=== PATIENT | male | born 1945 | race African-American/Black ===

== ENCOUNTER 2018-01-30 22:28 | Inpatient (IN) | payer MEDICARE, BC ==
[~2018-01-30] VITALS: Ht 182.9 cm; Wt 90.7 kg
[2018-01-30] MEDS ORDERED: Nitroglycerin 2% oint pkt TOPIC ONE (22:30)
[2018-01-30] MEDS ORDERED: LORazepam Inj 2mg/ml 1ml IV ONE (22:30)
[2018-01-30 22:38] VITALS: BP 182/101
[2018-01-30] MEDS ORDERED: CARDIZEM CD120 MG ORAL (22:38)
[2018-01-30] MEDS ORDERED: POTASSIUM CHLO20 ME2 ORAL (22:39)
[2018-01-30] MEDS ORDERED: B-12500 MC1 PO (22:39)
[2018-01-30] MEDS ORDERED: GABAPENTIN800 MG ORAL (22:39)
[2018-01-30] MEDS ORDERED: PROSCAR5 MG ORAL (22:39)
[2018-01-30] MEDS ORDERED: ENALAPRIL-HCTZ1 EACH ORAL (22:39)
[2018-01-30] MEDS ORDERED: ASPIR 8181 MG ORAL (22:39)
[2018-01-30] MEDS ORDERED: EMERGEN-C 500500 MG PO (22:39)
[2018-01-30] MEDS ORDERED: LOVENOX10 M3 SUBQ (22:39)
[2018-01-30] MEDS ORDERED: LATANOPROST2.5 ML BOTH EYES (22:39)
[2018-01-30] MEDS ORDERED: ATORVASTATIN CA20 MG ORAL (22:39)
[2018-01-30] MEDS ORDERED: VITAMIN D400 UNI5 PO (22:39)
[2018-01-30 22:50] VITALS: BP 131/97
[2018-01-30 22:52] LABS: HEMATOCRIT 50.1 % (42.0-52.0); HEMOGLOBIN 16.9 G/DL (14.2-18.0); MEAN CORPUSCULAR VOLUME 87 FL (80-99); PLATELET COUNT 294 K/UL (150-450); RED BLOOD COUNT 5.78 M/UL (4.70-6.10); RED CELL DISTRIBUTION WIDTH 11.2 % (11.6-14.8)
[2018-01-30 22:57] LABS: ANION GAP 11 mmol/L (5-15); BLOOD UREA NITROGEN 13 mg/dL (7-18); CALCIUM 9.7 MG/DL (8.5-10.1); CARBON DIOXIDE 27 MMOL/L (21-32); CHLORIDE 99 MMOL/L (98-107); CREATININE 1.1 MG/DL (0.55-1.30); POTASSIUM 3.3 MMOL/L (3.5-5.1); SODIUM 137 MMOL/L (136-145)
[2018-01-30] MEDS ORDERED: Metoprolol 5mg/5ml Inj IVP ONE (23:00)
[2018-01-30 23:05] LABS: WHITE BLOOD COUNT 23.7 K/UL (4.8-10.8)
[2018-01-30 23:10] LABS: ALANINE AMINOTRANSFERASE 61 U/L (12-78); ALBUMIN 4.3 G/DL (3.4-5.0); ALBUMIN/GLOBULIN RATIO 0.7 (1.0-2.7); ALKALINE PHOSPHATASE 137 U/L (46-116); ASPARTATE AMINO TRANSFERASE 44 U/L (15-37); BILIRUBIN,TOTAL 1.6 MG/DL (0.2-1.0); CKMB 2.5 NG/ML (0.0-3.6); CREATINE KINASE 418 U/L (26-308)
[2018-01-30 23:13] LABS: BILIRUBIN,DIRECT 0.5 MG/DL (0.0-0.3)
[2018-01-30] MEDS ORDERED: Sodium Chloride 500ML 500 ML IV ONE (23:15)
[2018-01-30 23:17] VITALS: BP 122/76
[2018-01-31] VITALS (7 sets, daily range): BP systolic 124–163; BP diastolic 72–114
--- NOTE | 2018-01-31 01:50 | Emergency Room Report ---
History of Present Illness General Chief Complaint: Dyspnea/Respdistress Source: Patient, Family Member Present Illness HPI 73-year-old male presents ED with respiratory distress. Brought in by EMS. Per EMS patient has been short of breath since this morning. Noted to have crackles bilaterally. Was started on CPAP with nitroglycerin SL. Upon arrival patient in distress. Tachycardic. O2 sats improved. 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 Scheduled for surgery but waiting on insurance. Denies chest pain. Denies fevers or chills. No other aggravating relieving factors. Denies any other associated symptoms Allergies: Coded Allergies: CORTISONE (Verified Allergy, Unknown, 01/30/18) Patient History Past Medical History: HTN, other - goiter Past Surgical History: none Pertinent Family History: none Social History: Denies: smoking, alcohol use, drug use Immunizations: UTD Reviewed Nursing Documentation: PMH: Agreed; PSxH: Agreed Nursing Documentation-PMH Past Medical History: No History, Except For Hx Cardiac Problems: Yes Hx Hypertension: Yes Hx Cancer: No Hx Gastrointestinal Problems: No Hx Neurological Problems: No Review of Systems All Other Systems: negative except mentioned in HPI Physical Exam Vital Signs Date Time Temp Pulse Resp B/P (MAP) Pulse Ox O2 Delivery O2 Flow Rate FiO2 01/30/18 22:28 97.0 158 40 202/102 96 Room Air 01/30/18 22:38 10.0 60 Sp02 EP Interpretation: reviewed, normal General Appearance: alert, mild distress Head: normocephalic Eyes: bilateral eye normal inspection, bilateral eye PERRL ENT: normal ENT inspection Neck: normal inspection Respiratory: accessory muscle use, crackles Cardiovascular #1: tachycardia Gastrointestinal: normal inspection Rectal: deferred Genitourinary: no CVA tenderness Musculoskeletal: normal inspection Neurologic: alert, oriented x3, responsive, motor strength/tone normal, sensory intact, speech normal Psychiatric: normal inspection Skin: normal inspection Lymphatic: normal inspection Procedures Critical Care Time Critical Care Time i. I feel this is a highly complex case requiring extensive working including EKG/Rhythm strip, Xray/CT/US, Blood/urine lab work, repeat exams while in ED, and administration of strong opiates/narcotics for pain control, admission to hospital or close patient follow up. Total time: 40 min bedside evaluation and treatment excludes procedures (EKG). Reason for critical care: Respiratory distress, A. fib Possible complications: hypotension, hypertension, KS, shock, arrhythmias, metabolic acidosis, end organ damage, respiratory failure. Interventions: Labs, IV fluids, EKG, chest x-ray, BIPAP, Nitropaste, Lopressor, antibiotics Course: Patient presenting in respiratory distress. Bilateral crackles. Hypertensive. Hypoxic. Started on BiPAP. nitro-paste added. Given Ativan. Labs show leukocytosis, lactic acid elevated, chest x-ray shows abnormal silhouette consistent with thyroid mass. Family has CT report which shows large goiter compressing trachea. Given IV hydration. Given antibiotics. On reassessment patient more comfortable at bedside. BiPAP at bedside Consultations: nursing staff, EMS, family Performed by: Dr Kidd Tolerated well condition = serious j. because of unstable vital signs this patient had a condition that could potentially threaten life or limb. I feel this is a critical patient who required my full attention while patient was considered critical. Total Critical Care Time excluding procedures was greater than 35 minutes Medical Decision Making Diagnostic Impression: Primary Impression: Respiratory distress Additional Impressions: Pulmonary edema Qualified Codes: J81.0 - Acute pulmonary edema Atrial fibrillation with RVR ER Course Hospital Course 73 yo M presents to ED c/o respiratory distress Differential diagnoses include: Pneumonia, CHF exacerbation, pneumothorax, fluid overload Clinical course Patient placed on stretcher. On monitor worker with hypoxia on room air and tachycardia. After initial history and physical, I ordered BIPAP, nitropaste, ativan I ordered labs, IV fluids, EKG, chest x-ray, blood cultures Labs -leukocytosis noted, hemoglobin/hematocrit stable, electrolytes okay, lactate 3.2, troponins negative EKG - afib with RVR, no acute ischemic changes interpreted by me CXR - R upper lobe opacity (is likely corresponds to the right thyroid goiter which is compressing on trachea seen on CT report) gave us copy of CT report Overall respiratory status improved on BiPAP. Given antibiotics. Given Lopressor. Given 30 mL per KG fluid bolus tachycardia resolved. Patient is off BiPAP. Will be kept at bedside Case discussed with Dr. Charlton and he agreed to the patient to his service for further care and support I feel this is a highly complex case requiring extensive working including EKG/ Rhythm strip, Xray/CT/US, Blood/urine lab work, repeat exams while in ED, and administration of strong opiates/narcotics for pain control, admission to hospital or close patient follow up. Diagnosis - respiratory distress, pulmonary edema, atrial fibrillation with RVR Patient admitted to SDU in serious condition Labs Test 01/30/18 22:30 01/30/18 22:35 01/30/18 23:39 White Blood Count 23.7 K/UL (4.8-10.8) Red Blood Count 5.78 M/UL (4.70-6.10) Hemoglobin 16.9 G/DL (14.2-18.0) Hematocrit 50.1 % (42.0-52.0) Mean Corpuscular Volume 87 FL (80-99) Mean Corpuscular Hemoglobin 29.3 PG (27.0-31.0) Mean Corpuscular Hemoglobin Concent 33.8 G/DL (32.0-36.0) Red Cell Distribution Width 11.2 % (11.6-14.8) Platelet Count 294 K/UL (150-450) Mean Platelet Volume 7.9 FL (6.5-10.1) Neutrophils (%) (Auto) % (45.0-75.0) Lymphocytes (%) (Auto) % (20.0-45.0) Monocytes (%) (Auto) % (1.0-10.0) Eosinophils (%) (Auto) % (0.0-3.0) Basophils (%) (Auto) % (0.0-2.0) Differential Total Cells Counted 100 Neutrophils % (Manual) 88 % (45-75) Lymphocytes % (Manual) 7 % (20-45) Monocytes % (Manual) 5 % (1-10) Eosinophils % (Manual) 0 % (0-3) Basophils % (Manual) 0 % (0-2) Band Neutrophils 0 % (0-8) Platelet Estimate Adequate Platelet Morphology Normal Red Blood Cell Morphology Normal Sodium Level 137 MMOL/L (136-145) Potassium Level 3.3 MMOL/L (3.5-5.1) Chloride Level 99 MMOL/L (98-107) Carbon Dioxide Level 27 MMOL/L (21-32) Anion Gap 11 mmol/L (5-15) Blood Urea Nitrogen 13 mg/dL (7-18) Creatinine 1.1 MG/DL (0.55-1.30) Estimat Glomerular Filtration Rate mL/min (>60) Glucose Level 157 MG/DL (74-106) Lactic Acid Level 3.20 mmol/L (0.4-2.0) 2.20 mmol/L (0.66-2.22) Calcium Level 9.7 MG/DL (8.5-10.1) Total Bilirubin 1.6 MG/DL (0.2-1.0) Direct Bilirubin 0.5 MG/DL (0.0-0.3) Aspartate Amino Transf (AST/SGOT) 44 U/L (15-37) Alanine Aminotransferase (ALT/SGPT) 61 U/L (12-78) Alkaline Phosphatase 137 U/L (46-116) Total Creatine Kinase 418 U/L (26-308) Creatine Kinase MB 2.5 NG/ML (0.0-3.6) Creatine Kinase MB Relative Index 0.5 Troponin I 0.000 ng/mL (0.000-0.056) Pro-B-Type Natriuretic Peptide 841 pg/mL (0-125) Total Protein 10.4 G/DL (6.4-8.2) Albumin 4.3 G/DL (3.4-5.0) Globulin 6.1 g/dL Albumin/Globulin Ratio 0.7 (1.0-2.7) Arterial Blood pH 7.384 (7.350-7.450) Arterial Blood Partial Pressure CO2 39.8 mmHg (35.0-45.0) Arterial Blood Partial Pressure O2 245.4 mmHg (75.0-100.0) Arterial Blood HCO3 23.2 mmol/L (22.0-26.0) Arterial Blood Oxygen Saturation 99.0 % (95-100) Arterial Blood Base Excess -1.6 (-2-2) Pete Test Positive EKG Diagnostic Results Rate: tachycardiac Rhythm: other - afib ST Segments: no acute changes ASA given to the pt in ED: No Rhythm Strip Diag. Results EP Interpretation: yes Rhythm: no PVC's, no ectopy Chest X-Ray Diagnostic Results Chest X-Ray Diagnostic Results : Chest X-Ray Ordered: Yes # of Views/Limited/Complete: 1 View Indication: Shortness of Breath EP Interpretation: Yes Interpretation: no consolidation, no effusion, no pneumothorax, other - Opacification of portions of the right upper lung. This may represent atelectasis. Clinical correlation is required. Impression: Other - R upper mass Electronically Signed by: Electronically signed by Brice Kidd MD Last Vital Signs Date Time Temp Pulse Resp B/P (MAP) Pulse Ox O2 Delivery O2 Flow Rate FiO2 01/31/18 01:20 121 28 100 Facial 60 01/31/18 00:43 10.0 01/31/18 00:25 97.5 124/72 Status: improved Disposition: ADMITTED INPATIENT Condition: Serious Referrals: NON PHYSICIAN (PCP) Brice Kidd MD Jan 31, 2018 01:50
[2018-01-31] MEDS ORDERED: dilTIAZem HCl CD 120mg cap ORAL SCH (09:00)
[2018-01-31] MEDS ORDERED: Xarelto 10mg tab ORAL SCH (09:30)
[2018-01-31] MEDS ORDERED: Vitamin B-12 500mcg tab ORAL SCH (09:45)
[2018-01-31] MEDS ORDERED: Aspirin Baby 81mg NG SCH (09:45)
[2018-01-31] MEDS ORDERED: LORazepam Inj 2mg/ml 1ml IV SCH (10:00)
--- NOTE | 2018-01-31 10:55 | History and Physical ---
History of Present Illness General Date patient seen: Jan 31, 2018 Time patient seen: 10:39 Reason for Hospitalization: Dyspnea/Respdistress Present Illness HPI 73-year-old male with h/o htn, Right UE DVT and goiter presented for progressively worsening shortness of breath. Patient was immediately placed on CPAP on admit, patient resp distress improved and currently on venturi mask and sating well. Patient noted to have severe crackles b/l. Patient's is at bedside, states that patient has a large thyroid mass compressing on the trachea and was planned for surgery soon with his CTSurgeon and ENT specialist at [facility]. Patient currently denies any chest pain or fevers or chills. soc hx; reviewed, denies any smoking, alcohol use or drug use fam hx reviewed, denies any sig past fam hx code status reviewed, full code Allergies: Coded Allergies: CORTISONE (Verified Allergy, Unknown, 01/30/18) Medication History Scheduled Aspirin* (Aspir 81*), 81 MG ORAL DAILY, (Reported) Atorvastatin Calcium* (Atorvastatin Calcium*), 10 MG ORAL BEDTIME, (Reported) Diltiazem Hcl* (Cardizem Cd*), 120 MG ORAL DAILY, (Reported) Enalapril/Hydrochlorothiazide (Enalapril-Hctz 10-25 Mg Tablet), 1 TAB ORAL DAILY , (Reported) Enoxaparin* (Lovenox*), 120 MG SUBQ DAILY, (Reported) Finasteride* (Proscar*), 5 MG ORAL DAILY, (Reported) Gabapentin* (Gabapentin*), 800 MG ORAL THREE TIMES A DAY, (Reported) Latanoprost* (Xalatan*), 1 DROP BOTH EYES BEDTIME, (Reported) Potassium Chloride (Potassium Chloride), 20 MEQ ORAL DAILY, (Reported) Miscellaneous Medications Cholecalciferol (Vitamin D3) (Vitamin D), 400 UNIT PO, (Reported) Cyanocobalamin (Vitamin B-12) (B-12), 500 MCG PO, (Reported) Vit C/Ascorb Sod/Multivit-Min (Emergen-C 500 mg Chewable Tab), 500 MG PO, ( Reported) Patient History Healthcare decision maker SELF Resuscitation status Advanced Directive on File No Review of Systems ROS Narrative 14 point ROS reviewed and negative except per Above HPI Physical Exam General Appearance: WD/WN, alert, moderate distress Lines, tubes and drains: peripheral HEENT: normocephalic, atraumatic, anicteric Neck: non-tender, normal alignment, supple, normal inspection Respiratory/Chest: chest wall non-tender, respiratory distress, other - on venturia mask, b/l crackles and rhonchi appreciated Cardiovascular/Chest: normal peripheral pulses, irregularly irregular Abdomen: normal bowel sounds, non tender, soft, no organomegaly, no mass Skin Exam: normal pigmentation, warm/dry Neurologic: bulldozer operator II-XII grossly normal, no motor/sensory deficits, alert, oriented x 3, responsive, normal mood/affect Last 24 Hour Vital Signs Date Time Temp Pulse Resp B/P (MAP) Pulse Ox O2 Delivery O2 Flow Rate FiO2 01/31/18 08:34 129 162/92 01/31/18 08:30 97.9 128 28 163/92 (115) 100 01/31/18 08:00 10.0 60 01/31/18 05:08 114 26 98 Facial 60 01/31/18 04:43 118 20 98 2.0 28 01/31/18 04:00 97.6 96 28 127/84 (98) 98 01/31/18 04:00 Bi-pap 10.0 01/31/18 04:00 114 01/31/18 01:20 121 28 100 Facial 60 01/31/18 00:43 10.0 60 01/31/18 00:25 97.5 121 32 124/72 100 Bi-pap 10.0 60 123 01/31/18 00:20 Bi-pap 01/31/18 00:20 Bi-pap 10.0 01/31/18 00:20 127 01/31/18 00:05 97.5 121 32 124/72 100 Bi-pap 10.0 60 123 01/31/18 00:00 97.7 76 28 129/83 (98) 99 01/30/18 23:17 97.5 123 32 122/76 100 Bi-pap 10.0 60 123 01/30/18 23:07 151 131/98 01/30/18 23:00 162 31 98 Facial 60 01/30/18 22:50 97.5 154 33 131/97 99 Room Air 10.0 60 01/30/18 22:40 182/101 01/30/18 22:38 97.4 158 41 182/101 97 Non-Rebreather 10.0 60 01/30/18 22:38 159 41 Bi-pap 10.0 60 01/30/18 22:28 97.0 158 40 202/102 96 Room Air Intake and Output 01/30/18 01/31/18 18:59 06:59 Intake Total 60 ml Balance 60 ml Intake Oral 60 ml Laboratory Tests Test 01/30/18 22:30 01/30/18 22:35 01/30/18 23:39 White Blood Count 23.7 K/UL (4.8-10.8) *H Red Blood Count 5.78 M/UL (4.70-6.10) Hemoglobin 16.9 G/DL (14.2-18.0) Hematocrit 50.1 % (42.0-52.0) Mean Corpuscular Volume 87 FL (80-99) Mean Corpuscular Hemoglobin 29.3 PG (27.0-31.0) Mean Corpuscular Hemoglobin Concent 33.8 G/DL (32.0-36.0) Red Cell Distribution Width 11.2 % (11.6-14.8) L Platelet Count 294 K/UL (150-450) Mean Platelet Volume 7.9 FL (6.5-10.1) Neutrophils (%) (Auto) % (45.0-75.0) Lymphocytes (%) (Auto) % (20.0-45.0) Monocytes (%) (Auto) % (1.0-10.0) Eosinophils (%) (Auto) % (0.0-3.0) Basophils (%) (Auto) % (0.0-2.0) Differential Total Cells Counted 100 Neutrophils % (Manual) 88 % (45-75) H Lymphocytes % (Manual) 7 % (20-45) L Monocytes % (Manual) 5 % (1-10) Eosinophils % (Manual) 0 % (0-3) Basophils % (Manual) 0 % (0-2) Band Neutrophils 0 % (0-8) Platelet Estimate Adequate Platelet Morphology Normal Red Blood Cell Morphology Normal Sodium Level 137 MMOL/L (136-145) Potassium Level 3.3 MMOL/L (3.5-5.1) L Chloride Level 99 MMOL/L (98-107) Carbon Dioxide Level 27 MMOL/L (21-32) Anion Gap 11 mmol/L (5-15) Blood Urea Nitrogen 13 mg/dL (7-18) Creatinine 1.1 MG/DL (0.55-1.30) Estimat Glomerular Filtration Rate mL/min (>60) Glucose Level 157 MG/DL (74-106) H Lactic Acid Level 3.20 mmol/L (0.4-2.0) H 2.20 mmol/L (0.66-2.22) Calcium Level 9.7 MG/DL (8.5-10.1) Total Bilirubin 1.6 MG/DL (0.2-1.0) H Direct Bilirubin 0.5 MG/DL (0.0-0.3) H Aspartate Amino Transf (AST/SGOT) 44 U/L (15-37) H Alanine Aminotransferase (ALT/SGPT) 61 U/L (12-78) Alkaline Phosphatase 137 U/L (46-116) H Total Creatine Kinase 418 U/L (26-308) H Creatine Kinase MB 2.5 NG/ML (0.0-3.6) Creatine Kinase MB Relative Index 0.5 Troponin I 0.000 ng/mL (0.000-0.056) Pro-B-Type Natriuretic Peptide 841 pg/mL (0-125) H Total Protein 10.4 G/DL (6.4-8.2) H Albumin 4.3 G/DL (3.4-5.0) Globulin 6.1 g/dL Albumin/Globulin Ratio 0.7 (1.0-2.7) L Arterial Blood pH 7.384 (7.350-7.450) Arterial Blood Partial Pressure CO2 39.8 mmHg (35.0-45.0) Arterial Blood Partial Pressure O2 245.4 mmHg (75.0-100.0) H Arterial Blood HCO3 23.2 mmol/L (22.0-26.0) Arterial Blood Oxygen Saturation 99.0 % (95-100) Arterial Blood Base Excess -1.6 (-2-2) Pete Test Positive Height (Feet): 6 Weight (Pounds): 200 Medications Current Medications Medications (Trade) Dose Ordered Sig/Daniel Route PRN Reason Start Time Stop Time Status Last Admin Dose Admin Albuterol/ Ipratropium (Albuterol/ Ipratropium) 3 ml Q4HRT N 01/31/18 11:00 02/05/18 10:59 Aspirin (ASA) 81 mg DAILY NG 01/31/18 09:45 03/02/18 09:44 Atorvastatin Calcium (Lipitor) 20 mg BEDTIME ORAL 01/31/18 21:00 03/02/18 20:59 Cyanocobalamin (Vitamin B-12) 500 mcg DAILY ORAL 01/31/18 09:45 03/02/18 09:44 Diltiazem HCl (Cardizem CD) 120 mg DAILY ORAL 01/31/18 09:00 03/02/18 08:59 01/31/18 08:34 Finasteride (Proscar) 5 mg DAILY ORAL 01/31/18 10:00 03/02/18 09:59 Furosemide (Lasix) 40 mg BID IV 01/31/18 09:00 03/02/18 08:59 01/31/18 08:37 Gabapentin (Neurontin) 800 mg THREE TIMES A DAY ORAL 01/31/18 10:00 03/02/18 09:59 Latanoprost (Xalatan) 1 drop BEDTIME BOTH EYES 01/31/18 21:00 03/02/18 20:59 Levofloxacin 150 ml @ 100 mls/hr Q24H IVPB 01/31/18 23:00 02/07/18 22:59 Lorazepam (Ativan 2mg/ml 1ml) 2 mg ONCE IV 01/31/18 10:00 01/31/18 11:00 01/31/18 10:12 Non-Formulary Medication (Non-Formulary Med) 1 ea DAILY ORAL 01/31/18 10:00 03/02/18 09:59 UNV Potassium Chloride 100 ml @ 100 mls/hr Q1H IVPB 01/31/18 10:00 01/31/18 13:59 01/31/18 10:12 Rivaroxaban (Xarelto) 20 mg DAILY ORAL 01/31/18 09:30 03/02/18 09:29 01/31/18 10:13 Vitamin D (Vitamin D) 400 intlu DAILY ORAL 01/31/18 11:00 03/02/18 10:59 Assessment/Plan Problem List: (1) Acute exacerbation of CHF (congestive heart failure) ICD Codes: I50.9 - Heart failure, unspecified SNOMED: 67784112 (2) Acute and chronic respiratory failure with hypoxia ICD Codes: J96.21 - Acute and chronic respiratory failure with hypoxia SNOMED: 66254289, 311954127 (3) Aspiration pneumonia ICD Codes: J69.0 - Pneumonitis due to inhalation of food and vomit SNOMED: 008059862 (4) Atrial fibrillation with RVR ICD Codes: I48.91 - Unspecified atrial fibrillation SNOMED: 893143043069822 (5) Pulmonary edema ICD Codes: J81.1 - Chronic pulmonary edema SNOMED: 88054556 Qualifiers: Qualified Codes: J81.0 - Acute pulmonary edema (6) Upper leg DVT (deep venous thromboembolism), acute ICD Codes: I82.4Y9 - Acute embolism and thrombosis of unspecified deep veins of unspecified proximal lower extremity SNOMED: 153156075, 339600082, 527349583 (7) Goiter ICD Codes: E04.9 - Nontoxic goiter, unspecified SNOMED: 3200515 Status: stable Assessment/Plan #Acute hypoxic resp failure #Acute systolic CHF exacerbation #Aspiration Pneumonia #Pulm edema - off cpap, on venturi mask, satting well, cont pulse ox, tele - per ed reviewed, xcr with rul consolidation and pulm edema, pending image to upload - ekg reviewed, afib - likely aspirating due to goiter - broad spectrum abx started, vanco, zosyn - lasix - tte #Afib RVR - new onset? - started on xarelto and resume cardizem and added metoprolol - monitor - cards consulted #Right Upper Extremity DVT - was on lovenox full dose previously, will give xarelto instead now #Goiter - plan transfer to [facility] so that patient could get surgery with his own CTS and ENT diet; npo except meds, swallow eval DVT Prophylaxis: SCD, xarelto Code Status: Full Hospital Classification Declaration: Based on this initial evaluation, and depending on the patient's clinical course, I anticipate that this patient will require hospitalization inpatient for 2-3 midnights for resp failure/asp pna /a fib rvr and close respiratory/hemodynamic monitoring. Disposition: Once the patient is stable to leave the hospital, I anticipate the patient will likely be discharged to the following environment: home I spent 77 minutes on this patient's case, and 46 minutes were dedicated to counseling and/or care coordination. Discussed with patient/family, nursing staff, SW/CM regarding clinical status, treatment course, and disposition planning. Time of note may not reflect time of encounter. Lori Davis MD Jan 31, 2018 10:55
[2018-01-31] MEDS ORDERED: Metoprolol 25mg tab ORAL SCH ×3 (11:00→21:00)
[2018-01-31] MEDS ORDERED: Vitamin D 400 INTLU TAB ORAL SCH (11:00)
[2018-01-31] MEDS ORDERED: Metoprolol 5mg/5ml Inj IVP ONE ×2 (11:15→18:15)
[2018-01-31] MEDS ORDERED: Metoprolol 5mg/5ml Inj IVP SCH ×4 (11:45→18:30)
[2018-01-31] MEDS: Albuterol/Ipratropium 3ml neb HHN SCH ×2 (13:00→15:14)
[2018-01-31] MEDS ORDERED: Vancomycin 1750mg/D5W 300ml IVPB SCH ×2 (13:00)
--- NOTE | 2018-01-31 13:52 | Cardiology Report ---
APPROVED REPORT EXAM: Two-dimensional and M-mode echocardiogram with Doppler and color Doppler. INDICATION Atrial Fibrillation M-Mode DIMENSIONS IVSd1.6 (0.7-1.1cm)Left Atrium (MM)2.8 (1.6-4.0cm) LVDd4.4 (3.5-5.6cm)Aortic Root3.3 (2.0-3.7cm) PWd1.3 (0.7-1.1cm)Aortic Cusp Exc.2.2 (1.5-2.0cm) IVSs2.2 cm LVDs2.5 (2.5-4.0cm) PWs1.7 cm Technically difficult study due to pt's ventilator Normal left ventricular chamber size. Global LV hypokinesis. Left ventricular ejection fraction estimated to be 40-45% %. Moderate left ventricular hypertrophy by 2-D. No evidence of pericardial effusion. All other cardiac chamber sizes are within normal limits. Focal aortic valve sclerosis with adequate cusp excursion. Thickened mitral valve leaflets with normal excursion. Mitral annulus and aortic root calcification. Pulmonic valve not well visualized. Normal tricuspid valve structure. IVC dilated at 2.7cm without physiologic collapse suggestive of increased RA pressure. A color flow and spectral Doppler study was performed and revealed: No aortic regurgitation. Moderate mitral regurgitation. Left ventricular diastolic function can not determined due to A-FIB. Mild tricuspid regurgitation. Tricuspid systolic velocities suggests peak right ventricular systolic pressure of 58 mmHg,consistent with moderate pulmonary hypertension.
[2018-01-31] MEDS ORDERED: Zosyn 2.25gm inj IV SCH (14:00)
[2018-01-31] MEDS ORDERED: Zoysn 3.37gm in NS 100ML IVPB SCH (15:00)
[2018-01-31] MEDS ORDERED: NS 275ml ONE ×2 (15:52→18:29)
[2018-01-31] MEDS ORDERED: Tubing IV Secondary IV ONE (15:52)
--- NOTE | 2018-01-31 17:04 | Consultation ---
History of Present Illness General Date patient seen: Jan 31, 2018 Time patient seen: 17:01 Chief Complaint: Dyspnea/Respdistress Present Illness HPI 73-year-old male with h/o htn, Right UE DVT and goiter presents with SOB/KURTZ, placed on BIPAP. Patient is to have surgical removal of goiter as it is compressing trachea. Currently no chest pain. Blood pressure was elevated on arrival, WBC elevated, troponin negative, lactate elevated. Echo showed mild LV systolic dysfunction, no valvular heart disease. Allergies: Coded Allergies: CORTISONE (Verified Allergy, Unknown, 01/30/18) Medication History Scheduled Aspirin* (Aspir 81*), 81 MG ORAL DAILY, (Reported) Atorvastatin Calcium* (Atorvastatin Calcium*), 10 MG ORAL BEDTIME, (Reported) Diltiazem Hcl* (Cardizem Cd*), 120 MG ORAL DAILY, (Reported) Enalapril/Hydrochlorothiazide (Enalapril-Hctz 10-25 Mg Tablet), 1 TAB ORAL DAILY , (Reported) Enoxaparin* (Lovenox*), 120 MG SUBQ DAILY, (Reported) Finasteride* (Proscar*), 5 MG ORAL DAILY, (Reported) Gabapentin* (Gabapentin*), 800 MG ORAL THREE TIMES A DAY, (Reported) Latanoprost* (Xalatan*), 1 DROP BOTH EYES BEDTIME, (Reported) Potassium Chloride (Potassium Chloride), 20 MEQ ORAL DAILY, (Reported) Miscellaneous Medications Cholecalciferol (Vitamin D3) (Vitamin D), 400 UNIT PO, (Reported) Cyanocobalamin (Vitamin B-12) (B-12), 500 MCG PO, (Reported) Vit C/Ascorb Sod/Multivit-Min (Emergen-C 500 mg Chewable Tab), 500 MG PO, ( Reported) Patient History Healthcare decision maker SELF Resuscitation status Advanced Directive on File No Review of Systems Constitutional: Reports: no symptoms Eye: Reports: no symptoms ENT: Reports: no symptoms Respiratory: Reports: cough, orthopnea, shortness of breath, KURTZ Cardiovascular: Reports: no symptoms Gastrointestinal: Reports: no symptoms Genitourinary: Reports: no symptoms Musculoskeletal: Reports: no symptoms Skin: Reports: no symptoms Psychiatric: Reports: no symptoms Neurological: Reports: no symptoms Endocrine: Reports: no symptoms Hematologic/Lymphatic: Reports: no symptoms Physical Exam General Appearance: mild distress Lines, tubes and drains: peripheral HEENT: normocephalic, atraumatic, anicteric, mucous membranes moist, PERRL Neck: non-tender, normal alignment, supple Respiratory/Chest: chest wall non-tender, accessory muscle use, crackles/rales Cardiovascular/Chest: normal peripheral pulses, normal rate, regular rhythm, regularly irregular, no gallop/murmur, no JVD Abdomen: normal bowel sounds, non tender, soft, no organomegaly, no mass Extremities: normal range of motion, non-tender, normal inspection, no calf tenderness Skin Exam: normal pigmentation 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, no motor/sensory deficits, oriented x 3 Last 24 Hour Vital Signs Date Time Temp Pulse Resp B/P (MAP) Pulse Ox O2 Delivery O2 Flow Rate FiO2 01/31/18 16:00 Bi-pap 10.0 01/31/18 16:00 60 01/31/18 15:32 114 26 99 Bi-pap 60 01/31/18 15:24 112 18 97 Bi-pap 60 01/31/18 15:14 112 27 98 Full Face 60 01/31/18 13:35 142/114 01/31/18 13:12 121 22 99 Bi-pap 60 01/31/18 13:01 117 18 100 Bi-pap 60 01/31/18 13:01 117 18 99 Full Face 60 01/31/18 12:00 10.0 60 01/31/18 12:00 97.7 140 32 142/114 (123) 100 01/31/18 12:00 Bi-pap 10.0 01/31/18 11:54 139 01/31/18 11:50 150 142/114 01/31/18 11:06 170 01/31/18 10:07 151 01/31/18 09:30 Bi-pap 10.0 01/31/18 08:34 129 162/92 01/31/18 08:30 97.9 128 28 163/92 (115) 100 01/31/18 08:00 10.0 60 01/31/18 08:00 Bi-pap 10.0 01/31/18 08:00 124 01/31/18 05:08 114 26 98 Facial 60 01/31/18 04:43 118 20 98 2.0 28 01/31/18 04:00 97.6 96 28 127/84 (98) 98 01/31/18 04:00 Bi-pap 10.0 01/31/18 04:00 114 01/31/18 01:20 121 28 100 Facial 60 01/31/18 00:43 10.0 60 01/31/18 00:25 97.5 121 32 124/72 100 Bi-pap 10.0 60 123 01/31/18 00:20 Bi-pap 01/31/18 00:20 Bi-pap 10.0 01/31/18 00:20 127 01/31/18 00:05 97.5 121 32 124/72 100 Bi-pap 10.0 60 123 01/31/18 00:00 97.7 76 28 129/83 (98) 99 01/30/18 23:17 97.5 123 32 122/76 100 Bi-pap 10.0 60 123 01/30/18 23:07 151 131/98 01/30/18 23:00 162 31 98 Facial 60 01/30/18 22:50 97.5 154 33 131/97 99 Room Air 10.0 60 01/30/18 22:40 182/101 01/30/18 22:38 97.4 158 41 182/101 97 Non-Rebreather 10.0 60 01/30/18 22:38 159 41 Bi-pap 10.0 60 01/30/18 22:28 97.0 158 40 202/102 96 Room Air Intake and Output 01/30/18 01/31/18 19:00 07:00 Intake Total 60 ml Balance 60 ml Intake Oral 60 ml Laboratory Tests Test 01/30/18 22:30 01/30/18 22:35 01/30/18 23:39 White Blood Count 23.7 K/UL (4.8-10.8) *H Red Blood Count 5.78 M/UL (4.70-6.10) Hemoglobin 16.9 G/DL (14.2-18.0) Hematocrit 50.1 % (42.0-52.0) Mean Corpuscular Volume 87 FL (80-99) Mean Corpuscular Hemoglobin 29.3 PG (27.0-31.0) Mean Corpuscular Hemoglobin Concent 33.8 G/DL (32.0-36.0) Red Cell Distribution Width 11.2 % (11.6-14.8) L Platelet Count 294 K/UL (150-450) Mean Platelet Volume 7.9 FL (6.5-10.1) Neutrophils (%) (Auto) % (45.0-75.0) Lymphocytes (%) (Auto) % (20.0-45.0) Monocytes (%) (Auto) % (1.0-10.0) Eosinophils (%) (Auto) % (0.0-3.0) Basophils (%) (Auto) % (0.0-2.0) Differential Total Cells Counted 100 Neutrophils % (Manual) 88 % (45-75) H Lymphocytes % (Manual) 7 % (20-45) L Monocytes % (Manual) 5 % (1-10) Eosinophils % (Manual) 0 % (0-3) Basophils % (Manual) 0 % (0-2) Band Neutrophils 0 % (0-8) Platelet Estimate Adequate Platelet Morphology Normal Red Blood Cell Morphology Normal Sodium Level 137 MMOL/L (136-145) Potassium Level 3.3 MMOL/L (3.5-5.1) L Chloride Level 99 MMOL/L (98-107) Carbon Dioxide Level 27 MMOL/L (21-32) Anion Gap 11 mmol/L (5-15) Blood Urea Nitrogen 13 mg/dL (7-18) Creatinine 1.1 MG/DL (0.55-1.30) Estimat Glomerular Filtration Rate mL/min (>60) Glucose Level 157 MG/DL (74-106) H Lactic Acid Level 3.20 mmol/L (0.4-2.0) H 2.20 mmol/L (0.66-2.22) Calcium Level 9.7 MG/DL (8.5-10.1) Total Bilirubin 1.6 MG/DL (0.2-1.0) H Direct Bilirubin 0.5 MG/DL (0.0-0.3) H Aspartate Amino Transf (AST/SGOT) 44 U/L (15-37) H Alanine Aminotransferase (ALT/SGPT) 61 U/L (12-78) Alkaline Phosphatase 137 U/L (46-116) H Total Creatine Kinase 418 U/L (26-308) H Creatine Kinase MB 2.5 NG/ML (0.0-3.6) Creatine Kinase MB Relative Index 0.5 Troponin I 0.000 ng/mL (0.000-0.056) Pro-B-Type Natriuretic Peptide 841 pg/mL (0-125) H Total Protein 10.4 G/DL (6.4-8.2) H Albumin 4.3 G/DL (3.4-5.0) Globulin 6.1 g/dL Albumin/Globulin Ratio 0.7 (1.0-2.7) L Arterial Blood pH 7.384 (7.350-7.450) Arterial Blood Partial Pressure CO2 39.8 mmHg (35.0-45.0) Arterial Blood Partial Pressure O2 245.4 mmHg (75.0-100.0) H Arterial Blood HCO3 23.2 mmol/L (22.0-26.0) Arterial Blood Oxygen Saturation 99.0 % (95-100) Arterial Blood Base Excess -1.6 (-2-2) Pete Test Positive Height (Feet): 6 Weight (Pounds): 200 Medications Current Medications Medications (Trade) Dose Ordered Sig/Daniel Route PRN Reason Start Time Stop Time Status Last Admin Dose Admin Albuterol/ Ipratropium (Albuterol/ Ipratropium) 3 ml Q4HRT HHN 01/31/18 11:00 02/05/18 10:59 01/31/18 15:14 Aspirin (ASA) 81 mg DAILY NG 01/31/18 09:45 03/02/18 09:44 Atorvastatin Calcium (Lipitor) 20 mg BEDTIME ORAL 01/31/18 21:00 03/02/18 20:59 Cyanocobalamin (Vitamin B-12) 500 mcg DAILY ORAL 01/31/18 09:45 03/02/18 09:44 Diltiazem HCl (Cardizem CD) 120 mg DAILY ORAL 01/31/18 09:00 03/02/18 08:59 01/31/18 08:34 Enalapril Maleate (Vasotec) 10 mg DAILY ORAL 01/31/18 12:00 03/02/18 11:59 01/31/18 13:35 Finasteride (Proscar) 5 mg DAILY ORAL 01/31/18 10:00 03/02/18 09:59 Furosemide (Lasix) 40 mg BID IV 01/31/18 09:00 03/02/18 08:59 01/31/18 08:37 Gabapentin (Neurontin) 800 mg THREE TIMES A DAY ORAL 01/31/18 10:00 03/02/18 09:59 01/31/18 13:35 Hydrochlorothiazide (Hydrodiuril) 25 mg DAILY ORAL 01/31/18 12:00 03/02/18 11:59 01/31/18 13:35 Latanoprost (Xalatan) 1 drop BEDTIME BOTH EYES 01/31/18 21:00 03/02/18 20:59 Metoprolol Tartrate (Lopressor) 25 mg Q12HR ORAL 01/31/18 21:00 03/02/18 20:59 Piperacillin Sod/ Tazobactam Sod 3.375 gm/Sodium Chloride 110 ml @ 27.5 mls/hr Q8H IVPB 01/31/18 15:00 02/07/18 14:59 01/31/18 16:28 Potassium Chloride 100 ml @ 100 mls/hr Q1H IVPB 01/31/18 16:30 01/31/18 17:29 01/31/18 16:28 Rivaroxaban (Xarelto) 20 mg DAILY ORAL 01/31/18 09:30 03/02/18 09:29 01/31/18 10:13 Vancomycin HCl (Vanco rx to dose) 1 ea DAILY PRN MISC Per rx protocol 01/31/18 10:45 03/02/18 10:44 Vancomycin HCl 1 gm/Dextrose 275 ml @ 183.708 mls/hr Q12H IVPB 02/01/18 01:00 02/06/18 00:59 Vitamin D (Vitamin D) 400 intlu DAILY ORAL 01/31/18 11:00 03/02/18 10:59 Jose Billingsley MD Jan 31, 2018 17:04
[2018-01-31] MEDS ORDERED: Latanoprost 0.005% Opth 2.5ml Soln BOTH EYES SCH (21:00)
[2018-01-31] MEDS ORDERED: Atorvastatin 20mg tab ORAL SCH (21:00)
[2018-02-01] MEDS ORDERED: Vancomycin 1gm/D5W 275ml IVPB SCH ×2 (01:00)
--- NOTE | 2018-02-02 14:18 | Discharge Summary ---
Discharge Summary Hospital Course Date of Admission Jan 30, 2018 at 23:04 Date of Discharge Jan 31, 2018 at 18:30 Admitting Diagnosis resp distress/pulmonary edema HPI Carlos Alba is a 73 year old male who was admitted on Jan 30, 2018 at 23: 04 for Respiratory Distress, Pulmonary Edema 73-year-old male with h/o htn, Right UE DVT and goiter presented for progressively worsening shortness of breath. Patient was immediately placed on CPAP on admit, patient resp distress improved and currently on venturi mask and sating well. Patient noted to have severe crackles b/l. 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 - started on xarelto and resume cardizem and added metoprolol - monitor - cards consulted #Right Upper Extremity DVT - was on lovenox full dose previously, will give xarelto instead now #Goiter - plan transfer to [facility] so that patient could get surgery with his own CTS and ENT diet; npo except meds, swallow eval DVT Prophylaxis: SCD, xarelto Code Status: Full Hospital Classification Declaration: Based on this initial evaluation, and depending on the patient's clinical course, I anticipate that this patient will require hospitalization inpatient for 2-3 midnights for resp failure/asp pna /a fib rvr and close respiratory/hemodynamic monitoring. Disposition: Once the patient is stable to leave the hospital, I anticipate the patient will likely be discharged to the following environment: home I spent 40 minutes on this patient's case and discharge planning Time of note may not reflect time of encounter. TRANSFER TO [facility] FOR HLOC and ENT and CTS eval Discharge Condition Upon Discharge: critical Discharge Disposition Patient was discharged to [facility]) Discharge Diagnoses: (1) Respiratory distress (2) Aspiration pneumonia (3) Acute exacerbation of CHF (congestive heart failure) (4) Upper leg DVT (deep venous thromboembolism), acute (5) Acute and chronic respiratory failure with hypoxia (6) Lori Garcia MD Feb 02, 2018 14:18
== END 2018-01-31 18:30 | disposition short-term general hospital (02) | DRG 291 ==
LOC: EDBD 22:28 → EMR 22:45 → 2W 23:04 → EDBEDREQ 23:17
DX: I11.0 Hypertensive heart disease with heart failure (principal); J96.01 Acute respiratory failure with hypoxia; J69.0 Pneumonitis due to inhalation of food and vomit; I82.4Y1 Acute embolism and thrombosis of unspecified deep veins of right proximal lower extremity; I50.23 Acute on chronic systolic (congestive) heart failure; I48.91 Unspecified atrial fibrillation; E04.9 Nontoxic goiter, unspecified
CPT/HCPCS: 36415; 36600; 71045; 80053; 82248; 82550; 82553; 82803; 83605; 83880; 84484; 85007; 85025; 87040; 87081; 93005; 93306; 94640; 94660; 96361; 96365; 96375; 99291; J7620